=== PATIENT | male | born 1995 | race Caucasian/White ===

== ENCOUNTER 2016-05-20 19:01 | Emergency (ER) | payer SELFPAY ==
[2016-05-20 19:19] VITALS: RESP 16; O2SAT 97
[2016-05-20] MEDS ORDERED: IBUPROFEN 600 MG TAB PO ONE (19:27)
[2016-05-20] MEDS ORDERED: HYDROCOD/APAP 5/325 PREPACK#6 BTL TAKEHOME ONE (20:26)
--- NOTE | 2016-05-20 20:26 | EDPHY ---
H & P Time Seen by Provider: 05/20/16 19:37 HPI/ROS: CHIEF COMPLAINT: Right shoulder injury HISTORY OF PRESENT ILLNESS: 20-year-old male presents to the emergency department with right shoulder injury. The patient was playing football and dove into the ground, rolled injuring his right shoulder. He did not hit his head or lose consciousness. Denies neck pain. Denies pain in the right hand or right wrist. He complains of isolated pain in the right shoulder. He has pain especially with range of motion. He denies numbness or tingling or feelings of weakness in his fingers. Denies chest pain or difficulty breathing. Denies abdominal pain. REVIEW OF SYSTEMS: Constitutional: No fever, no chills. Eyes: No double or blurry vision. ENT: No sore throat. Respiratory: No cough, no shortness of breath. Cardiac: No chest pain. Gastrointestinal: No abdominal pain, vomiting or diarrhea. Genitourinary: No dysuria. Musculoskeletal: Right shoulder pain as above. No neck or back pain. Skin: No rashes. Neurological: No headache. Past Medical/Surgical History: Negative Social History: [employer] student from [place] Smoking Status: Never smoked Physical Exam: General Appearance: Alert, no distress. No visible signs of trauma to his head. Mentating normally and answering questions appropriately. Eyes: Pupils equal and round. Extraocular motions are all intact. ENT: Mouth: Mucous membranes moist. Respiratory: No wheezing, rhonchi, or rales, lungs are clear to auscultation. Cardiovascular: Regular rate and rhythm. Gastrointestinal: Abdomen is soft and nontender, no masses, no rebound or guarding, bowel sounds normal. Neurological: Alert and oriented x 3, cranial nerves II through XII grossly intact Skin: Warm and dry, no rashes. Musculoskeletal: Nontender to palpate along the cervical, thoracic or lumbar spine. Neck is supple. Extremities: Tender to palpate along the right clavicle. Obvious palpable deformity. No skin tenting. No evidence of open wound. Limited range of motion of the right shoulder. Full range of motion of the right hand, right wrist and elbow. Strong radial pulse at the right wrist. Psychiatric: Patient is oriented X 3, there is no agitation. Constitutional: Initial Vital Signs Temperature (C) 36.8 C 05/20/16 19:16 Heart Rate 53 L 05/20/16 19:16 Respiratory Rate 16 05/20/16 19:16 Blood Pressure 118/64 05/20/16 19:16 O2 Sat (%) 97 05/20/16 19:16 O2 Delivery Mode Room Air Allergies/Adverse Reactions: No Known Allergies Allergy (Unverified 05/20/16 19:18) Home Medications: Medication Instructions Recorded Hydrocodone/APAP 5/325 [[place] 1 each PO Q4-6PRN PRN #15 tab 05/20/16 5/325 (*)] Medical Decision Making - Diagnostics Imaging: X-rays of the right clavicle reveal midshaft clavicular fracture with displacement. This is reviewed by myself the PAC system. Radiology interpretation to follow. Procedures: Patient was placed in a sling and examined post application in good placement with normal SWEDGER. ED Course/Re-evaluation: 20-year-old male presents with right shoulder injury. X-rays reveal right clavicle fracture. Was placed in a sling and given orthopedic referral. Differential Diagnosis: Including but not limited to fracture, dislocation, contusion, sprain - Data Points Medications Given: Discontinued Medications Hydrocodone Bitart/Acetaminophen ([place] 5/325mg Prepack#6) 1 btl TAKEHOME EDNOW ONE Stop: 05/20/16 20:27 Last Admin: 05/20/16 20:36 Dose: 1 btl Ibuprofen (Motrin) 600 mg PO EDNOW ONE Stop: 05/20/16 19:28 Last Admin: 05/20/16 19:32 Dose: 600 mg Departure - Departure Disposition: Home, Routine, Self-Care Clinical Impression: Right clavicle fracture Qualifiers: Encounter type: initial encounter Clavicle location: shaft Fracture type: closed Fracture alignment: displaced Qualified Code(s): S42.021A - Displaced fracture of shaft of right clavicle, initial encounter for closed fracture Condition: Good Instructions: Clavicle Fracture (ED) Additional Instructions: Sling for comfort and support. Ibuprofen 600 mg every 8 hours as needed for pain. Hydrocodone for severe pain as directed. Follow up with orthopedic surgeon this week to recheck. When you call them tell them that you were seen in the emergency department and you have a midshaft, displaced clavicle fracture. Referrals: Reji Gandhi MD [Medical Doctor] - As per Instructions Prescriptions: Hydrocodone/APAP 5/325 [[place] 5/325 (*)] 1 each PO Q4-6PRN PRN #15 tab PRN Reason: Pain, Severe
[2016-05-20 20:56] VITALS: BP 121/68; PULSE 58; TEMP 98.1
== END 2016-05-20 20:55 | disposition home or self-care (01) ==
DX: S42.021A Displaced fracture of shaft of right clavicle, initial encounter for closed fracture (principal); X58.XXXA Exposure to other specified factors, initial encounter; Y93.61 Activity, american tackle football
CPT/HCPCS: A4565

== ENCOUNTER 2017-01-31 19:41 | Emergency (ER) | payer OTHER ==
[2017-01-31 19:55] VITALS: BP 120/60; PULSE 60; RESP 14; TEMP 97.7; O2SAT 95
--- NOTE | 2017-01-31 19:56 | EDPHY ---
H & P Time Seen by Provider: 01/31/17 19:50 HPI/ROS: CHIEF COMPLAINT: Back pain HISTORY OF PRESENT ILLNESS: Patient fell down the stairs at 11:00 p.m. last night. He said he did a tumbling fall down about 20 stairs but did not lose consciousness. He presents with pain is low to mid back and pain in his left thigh. Symptoms mild to moderate, worse with movement or weight-bearing. Not associated with weakness or numbness in extremities. He says he feels a little bit "off "but does not have a headache or neck pain or visual symptoms. Is not off balance and does not have vertigo or dizziness. REVIEW OF SYSTEMS: Eye: no change in vision ENT: no sore throat Cardiac: no chest pain or syncope Pulmonary: no cough or SOB Abdomen: no vomiting, diarrhea, abdominal pain Musculoskeletal: HPI, no neck pain Skin: Abrasion on the right posterior chest in the left thigh and on the hands. Neuro: no headache Constitutional: no fever : no urinary symptoms A comprehensive 10 point review of systems is otherwise negative aside from elements mentioned in the history of present illness. PAST MEDICAL HISTORY: Right clavicle surgery. Social history: Nonsmoker General Appearance: Alert and conversant, cooperative. Eyes: No scleral icterus. EOMI. ENT, Mouth: Normal mucous membranes. No hemotympanum. No scalp hematoma. Respiratory: Normal respiratory effort, breath sounds equal, lungs are clear to auscultation. No crepitus. Cardiovascular: Regular rate and rhythm. Gastrointestinal: Abdomen is soft and non tender. Neurological: Alert and oriented x3. Normally conversant. Face symmetric, normal movement and sensation in all extremities. Skin: Abrasion to the right posterior chest and to the left thigh. Musculoskeletal: No cervical spine tenderness to palpation. He has tenderness from about T12-L2 posteriorly. The remainder of his extremities are nontender to palpation of the bones. His left thigh has some muscular tenderness but compartments are soft. Normal motor and sensory and vascular in both feet. Normal range of motion of both hips knees and ankles. Psychiatric: Not agitated. Emergency Department course/MDM: Patient only feels a little bit "off "but does not have other symptoms of concussion. X-rays performed of the areas of tenderness on his back. No hematuria, will do urine dip with back pain after a fall. His left thigh appears to be contusion, I think at this point in his evaluation he does not have compartment syndrome. 2030: The plain x-ray reviewed with Dr. Cavazos, suspicion for lumbar spine fracture. CT scanning discussed and consented. Urine dip negative for blood, I think kidney injury would be unlikely. 2118: No acute spinal injury/fracture on CT per Dr. Cavazos. Smoking Status: Never smoked Constitutional: Initial Vital Signs Temperature (C) 36.5 C 01/31/17 19:50 Heart Rate 60 01/31/17 19:50 Respiratory Rate 14 01/31/17 19:50 Blood Pressure 120/60 01/31/17 19:50 O2 Sat (%) 95 01/31/17 19:50 O2 Delivery Mode Room Air Allergies/Adverse Reactions: No Known Allergies Allergy (Unverified 05/20/16 19:18) Home Medications: Medication Instructions Recorded Hydrocodone/APAP 5/325 [[place] 1 each PO Q4-6PRN PRN #15 tab 05/20/16 5/325 (*)] Medical Decision Making - Diagnostics Imaging Results: Imaging Impressions Lumbar Spine X-Ray 01/31/17 20:12 Impression: Suspect possible acute compression fracture of L1 vertebral body. Recommend noncontrast CT for further characterization. Thoracic Spine X-Ray 01/31/17 20:12 Impression: 1. Possible acute compression fracture of L1 vertebral body. Thoracic spine appears intact as visualized. Lumbar Spine CT 01/31/17 20:31 Impression: Negative CT examination of the lumbar spine for acute traumatic injury. Results called to Dr. Pavan Pickard at 9:20 p.m. Differential Diagnosis: Differential considered is broad for blunt trauma/fall; considered the following including but not limited to: ICH, spine fracture, kidney injury, compartment syndrome, long bone fracture. Departure - Departure Disposition: Home, Routine, Self-Care Clinical Impression: Contusion of left thigh, initial encounter Contusion of back Qualifiers: Encounter type: initial encounter Laterality: unspecified laterality Qualified Code(s): S20.229A - Contusion of unspecified back wall of thorax, initial encounter Condition: Good Instructions: Head Injury (ED), Contusion in Adults (ED) Additional Instructions: Symptomatic care as discussed. Please immediately return for evaluation if you get headache, worsening pain your leg, weakness or numbness in either foot. You had testing of your urine which did not show any blood and x-rays which did not show fracture or broken bone in your back. Referrals: KASSIE SPEASR [Other] - As per Instructions
== END 2017-01-31 21:40 | disposition home or self-care (01) ==
DX: S30.0XXA Contusion of lower back and pelvis, initial encounter (principal); S20.229A Contusion of unspecified back wall of thorax, initial encounter; S70.12XA Contusion of left thigh, initial encounter; W10.8XXA Fall (on) (from) other stairs and steps, initial encounter

== ENCOUNTER 2018-01-22 02:41 | Emergency (ER) | payer OTHER ==
[2018-01-22] MEDS ORDERED: NS 1,000 ML IV ONE (02:45)
[2018-01-22] MEDS ORDERED: ONDANSETRON 4 MG/2 ML VIAL IVP ONE (02:46)
--- NOTE | 2018-01-22 02:46 | EDPHY ---
H & P Source: Patient, Police, EMS - Medical/Surgical History Hx Asthma: No Hx Chronic Respiratory Disease: No Hx Diabetes: No Hx Cardiac Disease: No Hx Renal Disease: No Hx Cirrhosis: No Hx Alcoholism: No Hx HIV/AIDS: No Hx Splenectomy or Spleen Trauma: No Other PMH: denies, Broken clavicle;surgery - Social History Smoking Status: Never smoked Time Seen by Provider: 01/22/18 02:47 HPI/ROS: HPI CHIEF COMPLAINT: Alcohol Intoxication, head injury, fall, cocaine abuse HISTORY OF PRESENT ILLNESS: 22-year-old male presents emergency room by EMS after he fell this evening. Unclear exactly when he fell. He is brought to a private residence with became concerned called 911. He had a large amount of alcohol to drink this evening. Multiple shots additionally did cocaine. At some point he fell and had head strike. Patient has left periorbital swelling and forehead swelling. Abrasion present but no laceration. He arrives in a cervical collar by EMS. Denies neck pain. Patient tells me he is able to see fine out of the left eye. Past Medical History: Denies medical history Past Surgical History: Right clavicle surgery Social History: Alcohol this evening large amount, cocaine. Family History: Noncontributory ROS REVIEW OF SYSTEMS: 10 Systems were reviewed and negative with the exception of the elements mentioned in the history of present illness. Exam Constitutional Intoxicated, triage nursing summary reviewed, vital signs reviewed, Sleepy, smells of alcohol Eyes normal conjunctivae and sclera, horizontal beating nystagmus consistent acute alcohol intoxication, otherwise pupils equal and react to light HENT left orbit: Significant periorbital swelling. Abrasions present. Extraocular movement is intact, no entrapment, no proptosis. No globe injury on exam. Pupil equal round react to light. normal inspection, atraumatic, moist mucus membranes, no epistaxis, neck supple/ no meningismus, no raccoon eyes. Respiratory clear to auscultation bilaterally, normal breath sounds, no respiratory distress, no wheezing. Cardiovascular rate normal, regular rhythm, no murmur, no edema, distal pulses normal. Gastrointestinal soft, non-tender, no rebound, no guarding, normal bowel sounds, no distension, no pulsatile mass. Genitourinary no CVA tenderness. Musculoskeletal no midline vertebral tenderness, full range of motion, no calf swelling, no tenderness of extremities, no meningismus, good pulses, neurovascularly intact. Skin pink, warm, & dry, no rash, skin atraumatic. Neurologic sleepy, intoxicated with alcohol,, alert and oriented x 3, AAOx3, moves all 4 extremities equally, motor intact, sensory intact, CN II-XII intact , , normal vision, normal speech. Psychiatric normal mood/affect. Heme/Lymph/Immune no lymphadenopathy. Differential Diagnosis: Includes but is not limited to in a particular order acute alcohol intoxication, alcohol abuse, dehydration, electrolyte abnormality , nausea vomiting from acute alcohol intoxication Medical Decision Making: Plan for this patient IV establishment IV fluid bolus Zofran 4 mg IV as needed for nausea vomiting, check serum alcohol level, check electrolytes, CT scan head and neck for trauma. Reason for CT scan head and neck is fall, obvious head injury, alcohol intoxication Re-evaluation: CT head and CT cervical spine reviewed. Called to me by Dr. Ge. Shows left periorbital swelling. The globe intact. No orbital fracture. No retro- orbital hematoma. No intracranial bleed no skull fracture. Negative CT scan head and neck for intracranial cervical spine trauma. Serum alcohol level 335. @ 330am (Nick Gonzalez) Constitutional: Initial Vital Signs Temperature (C) 36.6 C 01/22/18 02:45 Heart Rate 70 01/22/18 02:45 Respiratory Rate 18 01/22/18 02:45 Blood Pressure 118/68 01/22/18 02:45 O2 Sat (%) 99 01/22/18 02:45 O2 Delivery Mode Room Air Allergies/Adverse Reactions: No Known Allergies Allergy (Unverified 01/22/18 02:44) Home Medications: Medication Instructions Recorded NK [No Known Home Meds] 01/22/18 Medical Decision Making Other Provider: I assumed care of the patient at 0700. I re-evaluated the patient at 8:00 a.m.: He is arousable however still quite intoxicated. He will continue to undergo serial examinations. Cervical collar remains in place. I re-evaluated the patient at 9:00 a.m. He is alert and oriented x4. He does complain of some facial pain but denies neck pain. I have removed his cervical collar. He has normal range of motion of his neck without any tenderness. He was also radiographically cleared. At this point time I have cleared his cervical spine. Blood alcohol level 0.160. Patient has been placed on a [facility] hold by the police and will be transferred there. 9 30 a.m.: The patient is [facility] under the custody of [place] [employer]. (Juni Jean) - Data Points Laboratory Results: Laboratory Results 01/22/18 02:48 01/22/18 02:48 01/22/18 01/22/18 01/22/18 02:48 02:48 02:48 WBC 9.94 10^3/uL H 10^3/uL (3.80-9.50) RBC 5.32 10^6/uL 10^6/uL (4.40-6.38) Hgb 16.5 g/dL g/dL (13.7-17.5) Hct 48.2 % % (40.0-51.0) MCV 90.6 fL fL (81.5-99.8) MCH 31.0 pg pg (27.9-34.1) MCHC 34.2 g/dL g/dL (32.4-36.7) RDW 12.1 % % (11.5-15.2) Plt Count 264 10^3/uL 10^3/uL (150-400) MPV 10.1 fL fL (8.7-11.7) Neut % (Auto) 79.0 % H % (39.3-74.2) Lymph % (Auto) 15.2 % % (15.0-45.0) [place] % (Auto) 5.0 % % (4.5-13.0) Eos % (Auto) 0.1 % L % (0.6-7.6) Baso % (Auto) 0.3 % % (0.3-1.7) Nucleat RBC Rel Count 0.0 % % (0.0-0.2) Absolute Neuts (auto) 7.85 10^3/uL H 10^3/uL (1.70-6.50) Absolute Lymphs (auto) 1.51 10^3/uL 10^3/uL (1.00-3.00) Absolute Monos (auto) 0.50 10^3/uL 10^3/uL (0.30-0.80) Absolute Eos (auto) 0.01 10^3/uL L 10^3/uL (0.03-0.40) Absolute Basos (auto) 0.03 10^3/uL 10^3/uL (0.02-0.10) Absolute Nucleated RBC 0.00 10^3/uL 10^3/uL (0-0.01) Immature Gran % 0.4 % % (0.0-1.1) Immature Gran # 0.04 10^3/uL 10^3/uL (0.00-0.10) PT 12.9 SEC SEC (12.0-15.0) INR 0.95 (0.83-1.16) APTT 21.6 SEC L SEC (23.0-38.0) Sodium 149 mEq/L H mEq/L (135-145) Potassium 5.0 mEq/L mEq/L (3.3-5.0) Chloride 110 mEq/L mEq/L (97-110) Carbon Dioxide 25 mEq/l mEq/l (22-31) Anion Gap 14 mEq/L mEq/L (6-14) BUN 10 mg/dL mg/dL (7-23) Creatinine 0.9 mg/dL mg/dL (0.7-1.3) Estimated GFR > 60 Glucose 111 mg/dL H mg/dL (70-100) Calcium 9.5 mg/dL mg/dL (8.5-10.4) Ethyl Alcohol 335 mg/dL H mg/dL (0-10) Medications Given: Discontinued Medications Sodium Chloride (Ns) 1,000 mls @ 0 mls/hr IV EDNOW ONE; Wide Open PRN Reason: Protocol Stop: 01/22/18 02:46 Last Admin: 01/22/18 02:50 Dose: 1,000 mls Ondansetron HCl (Zofran) 4 mg IVP EDNOW ONE Stop: 01/22/18 02:47 Last Admin: 01/22/18 02:50 Dose: 4 mg Departure - Departure Disposition: Home, Routine, Self-Care Clinical Impression: Cocaine abuse Alcohol intoxication Qualifiers: Complication of substance-induced condition: uncomplicated Qualified Code(s): F10.920 - Alcohol use, unspecified with intoxication, uncomplicated Head injury Qualifiers: Encounter type: initial encounter Qualified Code(s): S09.90XA - Unspecified injury of head, initial encounter Contusion of face Qualifiers: Encounter type: initial encounter Qualified Code(s): S00.83XA - Contusion of other part of head, initial encounter Condition: Good Instructions: Cocaine Abuse (ED), Head Injury (ED), Alcohol Intoxication (ED), Abuse of Alcohol (ED) Additional Instructions: 1. Recommend refrain from drinking alcohol. 2. Refrain from doing cocaine. 3. Ice your face.
[2018-01-22 02:56] LABS: PLATELET COUNT 264 10^3/uL (150-400)
[2018-01-22 03:01] LABS: INR 0.95 (0.83-1.16); PROTIME(PATIENT) 12.9 SEC (12.0-15.0)
[2018-01-22 09:06] VITALS: BP 107/64
--- NOTE | 2018-01-22 10:22 | ASMTCMCOM ---
CM Note CM Note Notes: Met patient briefly as he was escorted to the [facility] with [employer]. Provided patient with pamphlet for [facility] at . Patient states that he has not been but is "aware of it" Encouraged patient to check it out if he is not liking the consequences of his current situation Date Signed: 01/22/2018 10:21 AM Electronically Signed By:Hillary Gold RN
== END 2018-01-22 09:50 | disposition home or self-care (01) ==
LOC: EDUNIT#
DX: F14.10 Cocaine abuse, uncomplicated (principal); F10.920 Alcohol use, unspecified with intoxication, uncomplicated; S00.83XA Contusion of other part of head, initial encounter; E86.9 Volume depletion, unspecified; W19.XXXA Unspecified fall, initial encounter; Y92.9 Unspecified place or not applicable; Y93.9 Activity, unspecified; Y99.9 Unspecified external cause status
CPT/HCPCS: 96374; G0480; J2405